=== PATIENT | female | born 1990 | race Asian ===

== ENCOUNTER 2018-10-22 19:33 | Emergency (ER) | payer SELFPAY ==
[~2018-10-22] VITALS: Ht 172.7 cm; Wt 128.0 kg
[2018-10-22] MEDS ORDERED: ACETAMINOPHEN 325MG TABLET PO STA (19:57)
[2018-10-22] MEDS ORDERED: KETOROLAC 30MG/ML VIAL IV STA (19:57)
[2018-10-22] MEDS ORDERED: SODIUM CHLORIDE 0.9% 1,000 ML IV ONE (19:57)
[2018-10-22 20:30] LABS: BASOPHILS % 1.4 % (0.0-2.0); EOSINOPHILS % 2.6 % (0.0-5.0); HEMATOCRIT. 34.5 % (36.0-48.0); HEMOGLOBIN. 10.9 g/dL (12.0-16.0); LYMPHOCYTES % 26.8 % (20.0-50.0); MEAN CORPUSCULAR HEMOGLOBIN 23.6 pg (28.0-32.0); MEAN CORPUSCULAR VOLUME 74.8 fL (81.0-99.0); MEAN PLATELET VOLUME 8.2 fl (7.4-10.4); MONOCYTES % 8.2 % (2.0-8.0); PLATELET 376 x1000/uL (130-400); RED BLOOD CELL COUNT 4.61 mill/uL (4.2-5.4); RED CELL DISTRIBUTION WIDTH 16.4 % (11.6-14.6)
[2018-10-22 20:34] LABS: CHLORIDE 108 mEq/L (98-107)
[2018-10-22 21:00] LABS: CLARITY URINE CLEAR (CLEAR); COLOR URINE YELLOW (YELLOW); KETONES URINE NEGATIVE (NEGATIVE); LEUKOCYTE ESTERASE URINE 1+ (NEGATIVE); NITRITE URINE NEGATIVE (NEGATIVE); OCCULT BLOOD URINE NEGATIVE (NEGATIVE); PROTEIN URINE NEGATIVE (NEGATIVE); SPECIFIC GRAVITY URINE 1.008 (1.005-1.030); UROBILINOGEN URINE 0.2 E.U./dL (0.2-1.0)
[2018-10-22 23:47] VITALS: BP 129/68
== END 2018-10-22 23:56 | disposition home or self-care (01) ==
LOC: ER 19:33 → CANBEDREQ 10-23 00:02
DX: B34.9 Viral infection, unspecified (principal); R07.89 Other chest pain; F17.200 Nicotine dependence, unspecified, uncomplicated
CPT/HCPCS: 36415; 71045; 80053; 81003; 81025; 85025; 87804; 93005; 96374; 99284; J1885; J7030

== ENCOUNTER 2020-10-02 06:49 | Emergency (ER) | payer MEDICAID ==
[~2020-10-02] VITALS: Ht 175.3 cm; Wt 109.0 kg
[2020-10-02] MEDS ORDERED: KETOROLAC 60MG/2ML VIAL IM STA (07:15)
[2020-10-02 07:51] LABS: HCG SCREEN NEGATIVE
[2020-10-02 09:08] VITALS: BP 134/81
== END 2020-10-02 09:09 | disposition home or self-care (01) ==
LOC: ER 06:49
DX: S13.4XXA Sprain of ligaments of cervical spine, initial encounter (principal); F17.200 Nicotine dependence, unspecified, uncomplicated; V49.9XXA Car occupant (driver) (passenger) injured in unspecified traffic accident, initial encounter; Y93.89 Activity, other specified; Y92.89 Other specified places as the place of occurrence of the external cause; Y99.8 Other external cause status
CPT/HCPCS: 71045; 72125; 81025; 84703; 96372; 99285; J1885

== ENCOUNTER 2020-10-03 13:07 | Emergency (ER) | payer MEDICAID ==
[~2020-10-03] VITALS: Ht 172.7 cm; Wt 128.0 kg
[2020-10-03] MEDS ORDERED: KETOROLAC 30MG/ML VIAL IM ONE (16:00)
[2020-10-03 16:04] VITALS: BP 161/91
== END 2020-10-03 16:14 | disposition home or self-care (01) ==
LOC: ER 13:07
DX: M79.10 Myalgia, unspecified site (principal); Z90.49 Acquired absence of other specified parts of digestive tract; V49.88XA Car occupant (driver) (passenger) injured in other specified transport accidents, initial encounter; Y93.89 Activity, other specified; Y92.89 Other specified places as the place of occurrence of the external cause; Y99.8 Other external cause status
CPT/HCPCS: 96372; 99283; J1885